=== PATIENT | female | born 1960 ===

== ENCOUNTER 2019-09-08 12:09 | Inpatient (IN) | payer OTHER ==
[~2019-09-08] VITALS: Ht 167.6 cm; Wt 152.8 kg
[~2019-09-08 12:09] MED LIST: ETOMIDATE 20 MG/10 ML ONE; PROPOFOL 100 ML IV ONE; SUCCINYLCHOLINE 20 MG/ML, 10ML ONE
--- NOTE | 2019-09-08 12:23 | NUR ---
md madsen at bedside w rt preping to intubate
[2019-09-08] MEDS ORDERED: ALBUTEROL/IPRATROPIUM 2.5MG/0.5MG, 3 ML NPPB ONE (12:30)
[2019-09-08] MEDS ORDERED: PLEASE ENTER ALLERGIES MC SCH (12:30)
[2019-09-08] MEDS ORDERED: SODIUM CHLORIDE FLUSH 10ML SYR IVF ONE (12:30)
[2019-09-08] MEDS ORDERED: PROPOFOL 100 ML IV PRN (12:40)
[2019-09-08] MEDS ORDERED: SUCCINYLCHOLINE 20 MG/ML, 10ML IVPush ONE (13:00)
[2019-09-08] MEDS ORDERED: ETOMIDATE 20 MG/10 ML IV ONE (13:00)
[2019-09-08 13:03] LABS: FIO2 80 %
--- NOTE | 2019-09-08 13:18 | NUR ---
NG placed, Xray obtained, pt on pressure support vent settings, pt sedated, awaiting ICU bed.
--- NOTE | 2019-09-08 13:26 | NUR ---
Pt's , Emiliano, contact info:
[2019-09-08 13:42] LABS: MEAN CORPUSCULAR HEMOGLOBIN 28.6 pg (27.0-34.8); MEAN CORPUSCULAR VOLUME 97.5 fL (80-100); MEAN PLATELET VOLUME 7.7 fL (7.4-10.4); PLATELET COUNT 355 x10^3/uL (130-400); RED BLOOD COUNT 6.21 x10^6/uL (3.82-5.3); RED CELL DISTRIBUTION WIDTH 17.2 % (9.6-15.2)
[2019-09-08 13:47] LABS: ANISOCYTOSIS 1+; BASOPHILS # (AUTO) 0.04 x10^3/uL (0-0.1); BASOPHILS % (AUTO) 0 % (0-1); EOSINOPHILS % (AUTO) 0 % (1-7); LYMPHOCYTES # (AUTO) 0.97 x10^3/uL (1-3.4); LYMPHOCYTES % (AUTO) 9 % (22-44); MD MORPH REVIEW ONLY; MEAN CORPUSCULAR HGB CONC 29.4 g/dL (32.4-35.8); MICROCYTOSIS 2+; MONOCYTES # (AUTO) 0.38 x10^3/uL (0.2-0.8); MONOCYTES % (AUTO) 4 % (2-9); NEUTROPHILS # (AUTO) 9.01 x10^3/uL (1.8-6.8); NEUTROPHILS % (AUTO) 87 % (42-75); POLYCHROMASIA 1+
[2019-09-08 13:48] LABS: <PLATELET ESTIMATE> ADEQUATE; HYPOCHROMIA 2+; LARGE PLATELETS 1+
[2019-09-08 14:26] LABS: ALANINE AMINOTRANSFERASE 42 U/L (12-78); ALBUMIN 2.6 g/dL (3.4-5.0); CALCIUM 9.3 mg/dL (8.5-10.1); CREATININE 0.98 mg/dL (0.55-1.02)
[2019-09-08 14:28] LABS: ALKALINE PHOSPHATASE 91 U/L (45-117); BILIRUBIN,TOTAL 0.7 mg/dL (0.2-1.0); TOTAL PROTEIN 6.6 g/dL (6.4-8.2)
[2019-09-08 14:38] LABS: ANION GAP 4 mmol/L (5-15); CHLORIDE 103 mmol/L (98-107)
[2019-09-08] MEDS: ALBUTEROL/IPRATROPIUM 2.5MG/0.5MG, 3 ML INLINE SCH ×3 (15:18→20:36)
[2019-09-08] MEDS ORDERED: GLUCAGON 1 MG IM PRN (15:30)
[2019-09-08] MEDS ORDERED: LACTULOSE 20 GM/30 ML UDC NG PRN (15:30)
[2019-09-08] MEDS ORDERED: LIDOCAINE-MPF 1%, 2ML ENDO PRN (15:30)
[2019-09-08] MEDS ORDERED: BISACODYL 10 MG SUPP PR PRN (15:30)
[2019-09-08] MEDS ORDERED: PHARMACY MAY ADJ FOR RENAL FX MC SCH (15:30)
[2019-09-08] MEDS ORDERED: SENNA 176 MG/5 ML ORAL SOL NG PRN (15:30)
[2019-09-08] MEDS ORDERED: DEXTROSE 4 GM TAB.CHEW PO PRN (15:30)
[2019-09-08] MEDS ORDERED: SENNA/DOCUSATE TABLET NG PRN (15:30)
[2019-09-08] MEDS ORDERED: DEXTROSE 50%, 50ML SYRINGE IVPush PRN (15:30)
[2019-09-08] MEDS ORDERED: ONDANSETRON 2MG/ML, 2ML IVPush PRN (16:00)
[2019-09-08] MEDS: PROPOFOL 100 ML IV PRN ×4 (16:25→22:58)
[2019-09-08 16:50] LABS: TRIGLYCERIDES 131 mg/dL (50-200)
[2019-09-08 16:53] LABS: TROPONIN I < 0.015 ng/mL (0.000-0.045)
[2019-09-08] MEDS: ENOXAPARIN 40 MG/0.4 ML SQ SCH (17:35)
[2019-09-08] MEDS ORDERED: CALCIUM CHLORIDE 13.6 MEQ in SODIUM CHLORIDE 0.9% 100 ML IV ONE (18:00)
[2019-09-08] MEDS ORDERED: SODIUM POLYSTYRENE SULFONATE ORAL SUSP PO ONE (18:00)
[2019-09-08 18:18] LABS: RAPID INFLUENZA A Negative (Negative); RAPID INFLUENZA B Negative (Negative)
[2019-09-08] MEDS: FUROSEMIDE 20 MG/2 ML IV SCH (18:29)
[2019-09-08] MEDS: SODIUM CHLORIDE FLUSH 10ML SYR IVF SCH (21:14)
[2019-09-08 21:33] LABS: ANION GAP 2 mmol/L (5-15); CALCIUM 9.8 mg/dL (8.5-10.1); CHLORIDE 104 mmol/L (98-107); CREATININE 0.77 mg/dL (0.55-1.02)
[2019-09-08 21:37] LABS: TROPONIN I < 0.015 ng/mL (0.000-0.045)
[2019-09-08 21:53] LABS: MICROSCOPIC AUTO
[2019-09-08 22:06] LABS: CULTURE INDICATED? NO
[2019-09-09] MEDS: PROPOFOL 100 ML IV PRN ×10 (00:30→22:43)
[2019-09-09] MEDS: ALBUTEROL/IPRATROPIUM 2.5MG/0.5MG, 3 ML INLINE SCH ×6 (02:14→22:34)
[2019-09-09 04:00] VITALS: BP 146/76
[2019-09-09] MEDS: PANTOPRAZOLE 40 MG IV IV SCH (07:55)
[2019-09-09] MEDS: FUROSEMIDE 20 MG/2 ML IV SCH ×2 (07:55→17:19)
[2019-09-09] MEDS: SODIUM CHLORIDE FLUSH 10ML SYR IVF SCH ×2 (09:00→19:08)
[2019-09-09 09:52] LABS: TROPONIN I < 0.015 ng/mL (0.000-0.045)
[2019-09-09 09:54] LABS: ANION GAP 2 mmol/L (5-15); CALCIUM 10.1 mg/dL (8.5-10.1); CHLORIDE 102 mmol/L (98-107); CREATININE 0.93 mg/dL (0.55-1.02)
[2019-09-09 10:18] LABS: BASOPHILS # (AUTO) 0.14 x10^3/uL (0-0.1); BASOPHILS % (AUTO) 1 % (0-1); EOSINOPHILS # (AUTO) 0.05 x10^3/uL (0-0.4); EOSINOPHILS % (AUTO) 1 % (1-7); LYMPHOCYTES # (AUTO) 1.17 x10^3/uL (1-3.4); LYMPHOCYTES % (AUTO) 11 % (22-44); MD SCAN; MEAN CORPUSCULAR HEMOGLOBIN 29.1 pg (27.0-34.8); MEAN CORPUSCULAR HGB CONC 30.7 g/dL (32.4-35.8); MEAN PLATELET VOLUME 7.7 fL (7.4-10.4); MONOCYTES # (AUTO) 1.01 x10^3/uL (0.2-0.8); MONOCYTES % (AUTO) 10 % (2-9); NEUTROPHILS # (AUTO) 7.86 x10^3/uL (1.8-6.8); NEUTROPHILS % (AUTO) 77 % (42-75); PLATELET COUNT 289 x10^3/uL (130-400); RED BLOOD COUNT 5.89 x10^6/uL (3.82-5.3); RED CELL DISTRIBUTION WIDTH 16.7 % (9.6-15.2)
--- NOTE | 2019-09-09 10:54 | NUR ---
TF GOAL: with or without propofol: VITAL HIGH PROTEIN @ 75ML/HR
[2019-09-09] MEDS ORDERED: OMNIPAQUE 350 MG/ML, 150 ML BOTTLE ONE (14:25)
[2019-09-09] MEDS ORDERED: FENTANYL PF 100 MCG/2ML ONE (15:19)
[2019-09-09] MEDS ORDERED: MIDAZOLAM 1 MG/ML, 5ML ONE (15:19)
[2019-09-09] MEDS: ENOXAPARIN 40 MG/0.4 ML SQ SCH (16:41)
[2019-09-09] MEDS ORDERED: hydrALAzine 20 MG/ML, 1ML IV PRN (17:30)
[2019-09-09] MEDS ORDERED: ENALAPRILAT 1.25 MG/ML, 1ML IV PRN (17:30)
[2019-09-10] MEDS: PROPOFOL 100 ML IV PRN ×7 (00:50→19:05)
[2019-09-10] MEDS: ALBUTEROL/IPRATROPIUM 2.5MG/0.5MG, 3 ML INLINE SCH ×6 (02:34→21:45)
[2019-09-10 03:56] LABS: MEAN CORPUSCULAR HEMOGLOBIN 29.3 pg (27.0-34.8); MEAN CORPUSCULAR HGB CONC 30.7 g/dL (32.4-35.8); MEAN CORPUSCULAR VOLUME 95.4 fL (80-100); MEAN PLATELET VOLUME 8.1 fL (7.4-10.4); PLATELET COUNT 285 x10^3/uL (130-400); RED BLOOD COUNT 5.37 x10^6/uL (3.82-5.3); RED CELL DISTRIBUTION WIDTH 16.4 % (9.6-15.2)
[2019-09-10 04:05] LABS: ANION GAP 2 mmol/L (5-15); CALCIUM 9.1 mg/dL (8.5-10.1); CHLORIDE 102 mmol/L (98-107)
[2019-09-10 04:06] LABS: CREATININE 0.59 mg/dL (0.55-1.02)
[2019-09-10 04:24] LABS: BASOPHILS # (AUTO) 0.07 x10^3/uL (0-0.1); BASOPHILS % (AUTO) 1 % (0-1); EOSINOPHILS # (AUTO) 0.18 x10^3/uL (0-0.4); EOSINOPHILS % (AUTO) 2 % (1-7); LYMPHOCYTES # (AUTO) 1.11 x10^3/uL (1-3.4); LYMPHOCYTES % (AUTO) 10 % (22-44); MD SCAN; MONOCYTES % (AUTO) 9 % (2-9); NEUTROPHILS # (AUTO) 8.79 x10^3/uL (1.8-6.8); NEUTROPHILS % (AUTO) 79 % (42-75)
[2019-09-10] MEDS ORDERED: FENTANYL PF 100 MCG/2ML ONE (05:15)
[2019-09-10] MEDS: FENTANYL PF 100 MCG/2ML IVPush PRN ×2 (05:30→08:52)
[2019-09-10] MEDS: FUROSEMIDE 20 MG/2 ML IV SCH ×2 (08:49→16:56)
[2019-09-10] MEDS: PANTOPRAZOLE 40 MG IV IV SCH (08:49)
[2019-09-10] MEDS: SODIUM CHLORIDE FLUSH 10ML SYR IVF SCH ×2 (08:50→18:58)
[2019-09-10] MEDS: DEXMEDETOMIDINE 1,000 MCG in SODIUM CHLORIDE 0.9% 240 ML IV PRN ×2 (10:33→21:12)
[2019-09-10] MEDS: SODIUM CHLORIDE INHALATION 7%, 4 ML NPPB SCH ×4 (10:45→23:00)
[2019-09-10] MEDS: ENOXAPARIN 40 MG/0.4 ML SQ SCH (16:55)
[2019-09-11] MEDS: ALBUTEROL/IPRATROPIUM 2.5MG/0.5MG, 3 ML INLINE SCH ×6 (02:03→22:44)
[2019-09-11] MEDS: SODIUM CHLORIDE INHALATION 7%, 4 ML NPPB SCH ×6 (02:03→22:44)
[2019-09-11 04:51] LABS: MEAN CORPUSCULAR HEMOGLOBIN 29.6 pg (27.0-34.8); MEAN CORPUSCULAR HGB CONC 31.1 g/dL (32.4-35.8); MEAN CORPUSCULAR VOLUME 95.2 fL (80-100); MEAN PLATELET VOLUME 8.3 fL (7.4-10.4); PLATELET COUNT 242 x10^3/uL (130-400); RED BLOOD COUNT 5.31 x10^6/uL (3.82-5.3); RED CELL DISTRIBUTION WIDTH 16.7 % (9.6-15.2)
[2019-09-11 04:55] LABS: ANION GAP 4 mmol/L (5-15); CALCIUM 8.8 mg/dL (8.5-10.1); CHLORIDE 103 mmol/L (98-107); CREATININE 0.49 mg/dL (0.55-1.02); TRIGLYCERIDES 115 mg/dL (50-200)
[2019-09-11 05:09] LABS: BASOPHILS # (AUTO) 0.07 x10^3/uL (0-0.1); BASOPHILS % (AUTO) 1 % (0-1); EOSINOPHILS # (AUTO) 0.17 x10^3/uL (0-0.4); EOSINOPHILS % (AUTO) 2 % (1-7); LYMPHOCYTES % (AUTO) 8 % (22-44); MD SCAN; MONOCYTES # (AUTO) 0.65 x10^3/uL (0.2-0.8); MONOCYTES % (AUTO) 6 % (2-9); NEUTROPHILS # (AUTO) 8.71 x10^3/uL (1.8-6.8); NEUTROPHILS % (AUTO) 84 % (42-75)
[2019-09-11] MEDS ORDERED: POTASSIUM CHLORIDE 10% 20 MEQ/15 ML UDC PO ONE (07:00)
[2019-09-11] MEDS: DEXMEDETOMIDINE 1,000 MCG in SODIUM CHLORIDE 0.9% 240 ML IV PRN ×2 (07:19→17:39)
[2019-09-11] MEDS ORDERED: POTASSIUM CHLORIDE 20 MEQ PACKET ONE (07:22)
[2019-09-11] MEDS: PANTOPRAZOLE 40 MG IV IV SCH (07:27)
[2019-09-11] MEDS: FUROSEMIDE 20 MG/2 ML IV SCH ×2 (07:27→17:39)
[2019-09-11] MEDS: SODIUM CHLORIDE FLUSH 10ML SYR IVF SCH ×2 (09:00→21:41)
[2019-09-11] MEDS: LEVOFLOXACIN/PMX 500MG/100ML 100 ML IV SCH (13:20)
[2019-09-11] MEDS: ENOXAPARIN 40 MG/0.4 ML SQ SCH (17:38)
[2019-09-12] MEDS: ALBUTEROL/IPRATROPIUM 2.5MG/0.5MG, 3 ML INLINE SCH ×6 (03:01→22:22)
[2019-09-12] MEDS: SODIUM CHLORIDE INHALATION 7%, 4 ML NPPB SCH ×6 (03:01→22:15)
[2019-09-12] MEDS: DEXMEDETOMIDINE 1,000 MCG in SODIUM CHLORIDE 0.9% 240 ML IV PRN (03:52)
[2019-09-12 05:00] LABS: MEAN CORPUSCULAR HEMOGLOBIN 29.5 pg (27.0-34.8); MEAN CORPUSCULAR VOLUME 95.2 fL (80-100); MEAN PLATELET VOLUME 8.6 fL (7.4-10.4); PLATELET COUNT 233 x10^3/uL (130-400); RED BLOOD COUNT 5.27 x10^6/uL (3.82-5.3); RED CELL DISTRIBUTION WIDTH 16.4 % (9.6-15.2)
[2019-09-12 05:10] LABS: CHLORIDE 104 mmol/L (98-107)
[2019-09-12 05:14] LABS: ANION GAP 2 mmol/L (5-15); CALCIUM 9.2 mg/dL (8.5-10.1); CREATININE 0.58 mg/dL (0.55-1.02)
[2019-09-12 06:04] LABS: BASOPHILS # (AUTO) 0.01 x10^3/uL (0-0.1); BASOPHILS % (AUTO) 0 % (0-1); EOSINOPHILS # (AUTO) 0.16 x10^3/uL (0-0.4); EOSINOPHILS % (AUTO) 1 % (1-7); LYMPHOCYTES # (AUTO) 0.94 x10^3/uL (1-3.4); LYMPHOCYTES % (AUTO) 8 % (22-44); MD SCAN; MONOCYTES % (AUTO) 7 % (2-9); NEUTROPHILS # (AUTO) 10.05 x10^3/uL (1.8-6.8); NEUTROPHILS % (AUTO) 84 % (42-75)
[2019-09-12] MEDS ORDERED: POTASSIUM CHLORIDE 10% 40 MEQ/30 ML UDC PO SCH (09:00)
[2019-09-12] MEDS: NEUTRA PHOS K 250 MG TABLET PO SCH ×2 (09:06→21:22)
[2019-09-12] MEDS: PANTOPRAZOLE 40 MG IV IV SCH (09:09)
[2019-09-12] MEDS: FUROSEMIDE 20 MG/2 ML IV SCH (09:09)
[2019-09-12] MEDS: SODIUM CHLORIDE FLUSH 10ML SYR IVF SCH ×2 (09:28→21:22)
[2019-09-12] MEDS ORDERED: PROPOFOL 100 ML IV PRN (09:30)
[2019-09-12] MEDS: POTASSIUM CHLORIDE 10% 40 MEQ/30 ML UDC PO SCH ×2 (10:00→21:22)
[2019-09-12] MEDS ORDERED: FUROSEMIDE 20 MG/2 ML IV ONE (10:30)
[2019-09-12] MEDS ORDERED: POTASSIUM CHLORIDE 10% 20 MEQ/15 ML UDC PO ONE (10:30)
[2019-09-12] MEDS: ACETAMINOPHEN 650 MG/20.3 ML UDC NG PRN (13:00)
[2019-09-12] MEDS: LEVOFLOXACIN/PMX 500MG/100ML 100 ML IV SCH (13:00)
[2019-09-12] MEDS ORDERED: FUROSEMIDE 40 MG TABLET PO SCH (17:00)
[2019-09-12] MEDS ORDERED: FUROSEMIDE 40 MG/4 ML ONE (17:36)
[2019-09-12] MEDS: FUROSEMIDE 40 MG/4 ML IV SCH (17:43)
[2019-09-12] MEDS: ENOXAPARIN 40 MG/0.4 ML SQ SCH (17:43)
[2019-09-13] MEDS: ALBUTEROL/IPRATROPIUM 2.5MG/0.5MG, 3 ML INLINE SCH ×2 (03:18→07:00)
[2019-09-13 04:44] LABS: MEAN CORPUSCULAR HEMOGLOBIN 29.3 pg (27.0-34.8); MEAN CORPUSCULAR HGB CONC 30.7 g/dL (32.4-35.8); MEAN CORPUSCULAR VOLUME 95.6 fL (80-100); MEAN PLATELET VOLUME 8.9 fL (7.4-10.4); PLATELET COUNT 224 x10^3/uL (130-400); RED BLOOD COUNT 5.08 x10^6/uL (3.82-5.3); RED CELL DISTRIBUTION WIDTH 16.5 % (9.6-15.2)
[2019-09-13 04:53] LABS: ANION GAP 3 mmol/L (5-15); CALCIUM 9.2 mg/dL (8.5-10.1); CHLORIDE 106 mmol/L (98-107); CREATININE 0.57 mg/dL (0.55-1.02)
[2019-09-13 05:57] LABS: BASOPHILS # (AUTO) 0.05 x10^3/uL (0-0.1); BASOPHILS % (AUTO) 0 % (0-1); EOSINOPHILS # (AUTO) 0.25 x10^3/uL (0-0.4); EOSINOPHILS % (AUTO) 2 % (1-7); LYMPHOCYTES # (AUTO) 1.36 x10^3/uL (1-3.4); LYMPHOCYTES % (AUTO) 11 % (22-44); MD SCAN; MONOCYTES # (AUTO) 1.14 x10^3/uL (0.2-0.8); MONOCYTES % (AUTO) 10 % (2-9); NEUTROPHILS # (AUTO) 9.18 x10^3/uL (1.8-6.8); NEUTROPHILS % (AUTO) 77 % (42-75)
[2019-09-13] MEDS: SODIUM CHLORIDE INHALATION 7%, 4 ML NPPB SCH (06:00)
[2019-09-13] MEDS ORDERED: MAGNESIUM SULFATE PMX 2GM/50ML 50 ML IV ONE (07:00)
[2019-09-13] MEDS: FUROSEMIDE 40 MG/4 ML IV SCH ×2 (08:26→17:17)
[2019-09-13] MEDS: NEUTRA PHOS K 250 MG TABLET PO SCH ×2 (08:26→21:17)
[2019-09-13] MEDS: POTASSIUM CHLORIDE 10% 40 MEQ/30 ML UDC PO SCH ×2 (08:26→21:18)
[2019-09-13] MEDS: PANTOPRAZOLE 40 MG IV IV SCH (08:27)
[2019-09-13] MEDS: SODIUM CHLORIDE FLUSH 10ML SYR IVF SCH ×2 (08:27→21:18)
[2019-09-13] MEDS ORDERED: ALBUTEROL/IPRATROPIUM 2.5MG/0.5MG, 3 ML NPPB PRN (11:00)
[2019-09-13] MEDS: ALBUTEROL/IPRATROPIUM 2.5MG/0.5MG, 3 ML NPPB SCH ×3 (11:29→18:48)
[2019-09-13] MEDS: AcetaZOLAMIDE INJ 500 MG IVPush SCH (11:44)
[2019-09-13] MEDS: LEVOFLOXACIN/PMX 500MG/100ML 100 ML IV SCH (13:15)
[2019-09-13] MEDS: ENOXAPARIN 40 MG/0.4 ML SQ SCH (17:17)
[2019-09-14] MEDS: ACETAMINOPHEN 650 MG/20.3 ML UDC NG PRN ×3 (01:14→21:17)
[2019-09-14 04:45] LABS: MEAN CORPUSCULAR HEMOGLOBIN 29.4 pg (27.0-34.8); MEAN CORPUSCULAR HGB CONC 30.6 g/dL (32.4-35.8); MEAN CORPUSCULAR VOLUME 96.2 fL (80-100); PLATELET COUNT 218 x10^3/uL (130-400); RED BLOOD COUNT 5.11 x10^6/uL (3.82-5.3)
[2019-09-14 04:48] LABS: ANION GAP 2 mmol/L (5-15); CALCIUM 9.4 mg/dL (8.5-10.1); CHLORIDE 106 mmol/L (98-107); CREATININE 0.56 mg/dL (0.55-1.02)
[2019-09-14 06:01] LABS: BASOPHILS # (AUTO) 0.04 x10^3/uL (0-0.1); BASOPHILS % (AUTO) 0 % (0-1); EOSINOPHILS % (AUTO) 3 % (1-7); LYMPHOCYTES # (AUTO) 1.17 x10^3/uL (1-3.4); LYMPHOCYTES % (AUTO) 10 % (22-44); MD SCAN; MONOCYTES # (AUTO) 1.34 x10^3/uL (0.2-0.8); MONOCYTES % (AUTO) 11 % (2-9); NEUTROPHILS # (AUTO) 8.97 x10^3/uL (1.8-6.8); NEUTROPHILS % (AUTO) 76 % (42-75)
[2019-09-14] MEDS: ALBUTEROL/IPRATROPIUM 2.5MG/0.5MG, 3 ML NPPB SCH ×4 (07:00→18:47)
[2019-09-14] MEDS: NEUTRA PHOS K 250 MG TABLET PO SCH ×2 (08:54→21:13)
[2019-09-14] MEDS: PANTOPRAZOLE 40 MG IV IV SCH (08:54)
[2019-09-14] MEDS: FUROSEMIDE 40 MG/4 ML IV SCH ×2 (08:54→18:24)
[2019-09-14] MEDS: POTASSIUM CHLORIDE 10% 40 MEQ/30 ML UDC PO SCH ×2 (08:55→21:13)
[2019-09-14] MEDS: SODIUM CHLORIDE FLUSH 10ML SYR IVF SCH ×2 (08:55→21:13)
[2019-09-14] MEDS: AcetaZOLAMIDE INJ 500 MG IVPush SCH (09:19)
[2019-09-14] MEDS: LEVOFLOXACIN/PMX 500MG/100ML 100 ML IV SCH (13:31)
[2019-09-14] MEDS: ENOXAPARIN 40 MG/0.4 ML SQ SCH (18:24)
[2019-09-15] MEDS: ACETAMINOPHEN 650 MG/20.3 ML UDC NG PRN ×3 (03:30→21:09)
[2019-09-15 04:46] LABS: CHLORIDE 103 mmol/L (98-107)
[2019-09-15 04:47] LABS: ANION GAP 2 mmol/L (5-15)
[2019-09-15 05:43] LABS: BASOPHILS # (AUTO) 0.05 x10^3/uL (0-0.1); BASOPHILS % (AUTO) 0 % (0-1); EOSINOPHILS # (AUTO) 0.47 x10^3/uL (0-0.4); EOSINOPHILS % (AUTO) 4 % (1-7); LYMPHOCYTES # (AUTO) 1.02 x10^3/uL (1-3.4); LYMPHOCYTES % (AUTO) 9 % (22-44); MD SCAN; MEAN CORPUSCULAR HEMOGLOBIN 29.5 pg (27.0-34.8); MEAN CORPUSCULAR HGB CONC 30.1 g/dL (32.4-35.8); MEAN PLATELET VOLUME 9.8 fL (7.4-10.4); MONOCYTES # (AUTO) 0.89 x10^3/uL (0.2-0.8); MONOCYTES % (AUTO) 8 % (2-9); NEUTROPHILS # (AUTO) 8.86 x10^3/uL (1.8-6.8); NEUTROPHILS % (AUTO) 79 % (42-75); PLATELET COUNT 193 x10^3/uL (130-400); RED BLOOD COUNT 5.04 x10^6/uL (3.82-5.3); RED CELL DISTRIBUTION WIDTH 16.9 % (9.6-15.2)
[2019-09-15] MEDS ORDERED: SODIUM PHOSPHATE 30 MMOL in SODIUM CHLORIDE 0.9% 500 ML IV ONE (07:00)
[2019-09-15] MEDS: ALBUTEROL/IPRATROPIUM 2.5MG/0.5MG, 3 ML NPPB SCH ×4 (07:00→19:08)
[2019-09-15] MEDS: FUROSEMIDE 40 MG/4 ML IV SCH ×2 (07:36→17:34)
[2019-09-15] MEDS: PANTOPRAZOLE 40 MG IV IV SCH (08:18)
[2019-09-15] MEDS: POTASSIUM CHLORIDE 10% 40 MEQ/30 ML UDC PO SCH (08:18)
[2019-09-15] MEDS: AcetaZOLAMIDE INJ 500 MG IVPush SCH (08:18)
[2019-09-15] MEDS: NEUTRA PHOS K 250 MG TABLET PO SCH ×2 (08:18→21:09)
[2019-09-15] MEDS: SODIUM CHLORIDE FLUSH 10ML SYR IVF SCH ×2 (09:00→21:09)
[2019-09-15] MEDS: LEVOFLOXACIN/PMX 500MG/100ML 100 ML IV SCH (13:09)
[2019-09-15] MEDS: ENOXAPARIN 40 MG/0.4 ML SQ SCH (17:34)
[2019-09-15] MEDS ORDERED: POTASSIUM CHLORIDE 20 MEQ TAB.ER.PRT ONE (21:05)
[2019-09-15] MEDS: POTASSIUM CHLORIDE 20 MEQ TAB.ER.PRT PO SCH (21:09)
[2019-09-16 04:44] LABS: ANION GAP 2 mmol/L (5-15); CALCIUM 9.8 mg/dL (8.5-10.1); CHLORIDE 102 mmol/L (98-107)
[2019-09-16 05:15] LABS: MEAN CORPUSCULAR HEMOGLOBIN 29.4 pg (27.0-34.8); MEAN CORPUSCULAR HGB CONC 30.3 g/dL (32.4-35.8); MEAN CORPUSCULAR VOLUME 97.1 fL (80-100); PLATELET COUNT 188 x10^3/uL (130-400); RED BLOOD COUNT 5.08 x10^6/uL (3.82-5.3); RED CELL DISTRIBUTION WIDTH 16.6 % (9.6-15.2)
[2019-09-16 05:52] LABS: BASOPHILS # (AUTO) 0.03 x10^3/uL (0-0.1); BASOPHILS % (AUTO) 0 % (0-1); EOSINOPHILS # (AUTO) 0.42 x10^3/uL (0-0.4); EOSINOPHILS % (AUTO) 5 % (1-7); LYMPHOCYTES # (AUTO) 0.88 x10^3/uL (1-3.4); LYMPHOCYTES % (AUTO) 11 % (22-44); MD SCAN; MONOCYTES # (AUTO) 0.77 x10^3/uL (0.2-0.8); MONOCYTES % (AUTO) 9 % (2-9); NEUTROPHILS # (AUTO) 6.19 x10^3/uL (1.8-6.8); NEUTROPHILS % (AUTO) 75 % (42-75)
[2019-09-16] MEDS ORDERED: MAGNESIUM SULFATE PMX 2GM/50ML 50 ML IV ONE (07:00)
[2019-09-16] MEDS: ALBUTEROL/IPRATROPIUM 2.5MG/0.5MG, 3 ML NPPB SCH ×4 (07:00→20:09)
[2019-09-16] MEDS: NEUTRA PHOS K 250 MG TABLET PO SCH ×2 (07:53→21:05)
[2019-09-16] MEDS: FUROSEMIDE 40 MG/4 ML IV SCH ×2 (07:54→16:54)
[2019-09-16] MEDS: PANTOPRAZOLE 40 MG IV IV SCH (07:54)
[2019-09-16] MEDS: POTASSIUM CHLORIDE 20 MEQ TAB.ER.PRT PO SCH ×2 (07:54→21:05)
[2019-09-16] MEDS: SODIUM CHLORIDE FLUSH 10ML SYR IVF SCH ×2 (07:55→21:05)
[2019-09-16] MEDS: LEVOFLOXACIN/PMX 500MG/100ML 100 ML IV SCH (12:55)
[2019-09-16] MEDS: ENOXAPARIN 40 MG/0.4 ML SQ SCH (16:54)
[2019-09-17 04:25] LABS: MEAN CORPUSCULAR HEMOGLOBIN 28.7 pg (27.0-34.8); MEAN CORPUSCULAR HGB CONC 30.3 g/dL (32.4-35.8); MEAN CORPUSCULAR VOLUME 94.8 fL (80-100); MEAN PLATELET VOLUME 9.1 fL (7.4-10.4); PLATELET COUNT 191 x10^3/uL (130-400); RED BLOOD COUNT 5.19 x10^6/uL (3.82-5.3); RED CELL DISTRIBUTION WIDTH 15.8 % (9.6-15.2)
[2019-09-17 04:26] LABS: ANION GAP 4 mmol/L (5-15); CALCIUM 9.4 mg/dL (8.5-10.1); CHLORIDE 102 mmol/L (98-107); CREATININE 0.48 mg/dL (0.55-1.02)
[2019-09-17 06:05] LABS: BASOPHILS # (AUTO) 0.02 x10^3/uL (0-0.1); BASOPHILS % (AUTO) 0 % (0-1); EOSINOPHILS # (AUTO) 0.28 x10^3/uL (0-0.4); EOSINOPHILS % (AUTO) 4 % (1-7); LYMPHOCYTES % (AUTO) 12 % (22-44); MD SCAN; MONOCYTES # (AUTO) 0.76 x10^3/uL (0.2-0.8); MONOCYTES % (AUTO) 10 % (2-9); NEUTROPHILS # (AUTO) 5.67 x10^3/uL (1.8-6.8); NEUTROPHILS % (AUTO) 74 % (42-75)
[2019-09-17] MEDS: PANTOPROZOLE 40MG TABLET PO SCH (06:21)
[2019-09-17] MEDS ORDERED: MAGNESIUM SULFATE PMX 2GM/50ML 50 ML IV ONE (07:00)
[2019-09-17] MEDS: ALBUTEROL/IPRATROPIUM 2.5MG/0.5MG, 3 ML NPPB SCH ×4 (07:00→18:45)
[2019-09-17] MEDS: SODIUM CHLORIDE FLUSH 10ML SYR IVF SCH ×2 (07:33→20:43)
[2019-09-17] MEDS: POTASSIUM CHLORIDE 20 MEQ TAB.ER.PRT PO SCH ×2 (07:37→20:27)
[2019-09-17] MEDS: NEUTRA PHOS K 250 MG TABLET PO SCH ×2 (07:37→20:27)
[2019-09-17] MEDS: FUROSEMIDE 40 MG/4 ML IV SCH ×2 (07:38→17:02)
[2019-09-17] MEDS: LEVOFLOXACIN/PMX 500MG/100ML 100 ML IV SCH (13:51)
[2019-09-17] MEDS: ENOXAPARIN 40 MG/0.4 ML SQ SCH (17:02)
[2019-09-17 19:37] VITALS: BP 112/63
[2019-09-17] MEDS: ACETAMINOPHEN 650 MG/20.3 ML UDC NG PRN (23:43)
[2019-09-18 01:36] VITALS: BP 122/71
[2019-09-18] MEDS: PANTOPROZOLE 40MG TABLET PO SCH (04:59)
[2019-09-18 05:39] LABS: ANION GAP 3 mmol/L (5-15); CALCIUM 9.9 mg/dL (8.5-10.1); CHLORIDE 102 mmol/L (98-107); CREATININE 0.48 mg/dL (0.55-1.02)
[2019-09-18 05:44] LABS: MEAN CORPUSCULAR HEMOGLOBIN 29.2 pg (27.0-34.8); MEAN CORPUSCULAR HGB CONC 30.2 g/dL (32.4-35.8); MEAN CORPUSCULAR VOLUME 96.7 fL (80-100); MEAN PLATELET VOLUME 9.4 fL (7.4-10.4); PLATELET COUNT 229 x10^3/uL (130-400); RED BLOOD COUNT 5.31 x10^6/uL (3.82-5.3); RED CELL DISTRIBUTION WIDTH 17.2 % (9.6-15.2)
[2019-09-18 06:00] LABS: BASOPHILS # (AUTO) 0.03 x10^3/uL (0-0.1); BASOPHILS % (AUTO) 0 % (0-1); EOSINOPHILS % (AUTO) 4 % (1-7); LYMPHOCYTES # (AUTO) 0.85 x10^3/uL (1-3.4); LYMPHOCYTES % (AUTO) 12 % (22-44); MD SCAN; MONOCYTES % (AUTO) 11 % (2-9); NEUTROPHILS # (AUTO) 5.03 x10^3/uL (1.8-6.8); NEUTROPHILS % (AUTO) 72 % (42-75)
[2019-09-18] MEDS: ALBUTEROL/IPRATROPIUM 2.5MG/0.5MG, 3 ML NPPB SCH ×4 (07:20→19:53)
[2019-09-18] MEDS: FUROSEMIDE 40 MG/4 ML IV SCH ×2 (08:26→17:19)
[2019-09-18] MEDS: POTASSIUM CHLORIDE 20 MEQ TAB.ER.PRT PO SCH ×2 (08:26→20:32)
[2019-09-18] MEDS: NEUTRA PHOS K 250 MG TABLET PO SCH ×2 (08:26→20:32)
[2019-09-18] MEDS: SODIUM CHLORIDE FLUSH 10ML SYR IVF SCH ×2 (08:27→20:32)
[2019-09-18 14:48] VITALS: BP 112/66
[2019-09-18] MEDS: ENOXAPARIN 30 MG/0.3 ML SQ SCH (14:55)
[2019-09-18 19:27] VITALS: BP 136/83
[2019-09-19 01:28] VITALS: BP 133/80
[2019-09-19] MEDS: ENOXAPARIN 30 MG/0.3 ML SQ SCH ×2 (02:48→14:18)
[2019-09-19] MEDS: PANTOPROZOLE 40MG TABLET PO SCH (06:00)
[2019-09-19 06:38] LABS: MEAN CORPUSCULAR HGB CONC 30.6 g/dL (32.4-35.8); MEAN CORPUSCULAR VOLUME 94.7 fL (80-100); MEAN PLATELET VOLUME 9.2 fL (7.4-10.4); PLATELET COUNT 250 x10^3/uL (130-400); RED BLOOD COUNT 5.39 x10^6/uL (3.82-5.3); RED CELL DISTRIBUTION WIDTH 16.6 % (9.6-15.2)
[2019-09-19 06:39] LABS: ANION GAP 4 mmol/L (5-15); CALCIUM 10.1 mg/dL (8.5-10.1); CHLORIDE 101 mmol/L (98-107)
[2019-09-19 06:40] LABS: CREATININE 0.47 mg/dL (0.55-1.02)
[2019-09-19] MEDS: ALBUTEROL/IPRATROPIUM 2.5MG/0.5MG, 3 ML NPPB SCH ×3 (06:55→15:10)
[2019-09-19 07:10] LABS: BASOPHILS # (AUTO) 0.03 x10^3/uL (0-0.1); BASOPHILS % (AUTO) 0 % (0-1); EOSINOPHILS # (AUTO) 0.32 x10^3/uL (0-0.4); EOSINOPHILS % (AUTO) 5 % (1-7); LYMPHOCYTES # (AUTO) 1.08 x10^3/uL (1-3.4); LYMPHOCYTES % (AUTO) 16 % (22-44); MD SCAN; MONOCYTES # (AUTO) 0.64 x10^3/uL (0.2-0.8); MONOCYTES % (AUTO) 10 % (2-9); NEUTROPHILS # (AUTO) 4.48 x10^3/uL (1.8-6.8); NEUTROPHILS % (AUTO) 69 % (42-75)
[2019-09-19 07:23] VITALS: BP 122/70
[2019-09-19] MEDS: NEUTRA PHOS K 250 MG TABLET PO SCH ×2 (08:30→22:13)
[2019-09-19] MEDS: POTASSIUM CHLORIDE 20 MEQ TAB.ER.PRT PO SCH ×2 (08:31→22:13)
[2019-09-19] MEDS: SODIUM CHLORIDE FLUSH 10ML SYR IVF SCH ×2 (08:31→22:13)
[2019-09-19] MEDS: FUROSEMIDE 40 MG/4 ML IV SCH ×2 (09:20→17:00)
[2019-09-19 14:38] VITALS: BP 133/85
[2019-09-19 19:42] VITALS: BP 127/78
[2019-09-19] MEDS ORDERED: ALBUTEROL/IPRATROPIUM 2.5MG/0.5MG, 3 ML NPPB SCH (21:00)
[2019-09-20 01:01] VITALS: BP 137/78
[2019-09-20] MEDS: ENOXAPARIN 30 MG/0.3 ML SQ SCH ×2 (02:39→14:41)
[2019-09-20] MEDS ORDERED: FURO-93 PO (04:04)
[2019-09-20] MEDS ORDERED: POTA40LI7 PO (04:08)
[2019-09-20] MEDS ORDERED: CARV6.25 PO (04:09)
[2019-09-20] MEDS: PANTOPROZOLE 40MG TABLET PO SCH (05:05)
[2019-09-20 05:29] LABS: ANION GAP 1 mmol/L (5-15); CHLORIDE 100 mmol/L (98-107); CREATININE 0.52 mg/dL (0.55-1.02)
[2019-09-20 05:45] LABS: MEAN CORPUSCULAR HEMOGLOBIN 29.1 pg (27.0-34.8); MEAN CORPUSCULAR HGB CONC 30.4 g/dL (32.4-35.8); MEAN CORPUSCULAR VOLUME 95.4 fL (80-100); MEAN PLATELET VOLUME 9.1 fL (7.4-10.4); PLATELET COUNT 287 x10^3/uL (130-400); RED BLOOD COUNT 5.37 x10^6/uL (3.82-5.3); RED CELL DISTRIBUTION WIDTH 16.6 % (9.6-15.2)
[2019-09-20 06:13] LABS: BASOPHILS # (AUTO) 0.08 x10^3/uL (0-0.1); BASOPHILS % (AUTO) 1 % (0-1); EOSINOPHILS # (AUTO) 0.32 x10^3/uL (0-0.4); EOSINOPHILS % (AUTO) 4 % (1-7); LYMPHOCYTES # (AUTO) 1.28 x10^3/uL (1-3.4); LYMPHOCYTES % (AUTO) 15 % (22-44); MD SCAN; MONOCYTES # (AUTO) 0.68 x10^3/uL (0.2-0.8); MONOCYTES % (AUTO) 8 % (2-9); NEUTROPHILS # (AUTO) 6.04 x10^3/uL (1.8-6.8); NEUTROPHILS % (AUTO) 72 % (42-75)
[2019-09-20 07:17] VITALS: BP 153/89
[2019-09-20] MEDS ORDERED: ALBUTEROL/IPRATROPIUM 2.5MG/0.5MG, 3 ML NPPB SCH (07:30)
[2019-09-20] MEDS: FUROSEMIDE 40 MG/4 ML IV SCH (07:49)
[2019-09-20] MEDS: POTASSIUM CHLORIDE 20 MEQ TAB.ER.PRT PO SCH (07:49)
[2019-09-20] MEDS: NEUTRA PHOS K 250 MG TABLET PO SCH (07:49)
[2019-09-20] MEDS: SODIUM CHLORIDE FLUSH 10ML SYR IVF SCH (07:50)
[2019-09-20] MEDS ORDERED: POTA20TA91 PO (13:49)
[2019-09-20] MEDS ORDERED: FURO40TA6 PO (13:49)
[2019-09-20] MEDS ORDERED: ALBU8.5H8 INH (13:49)
[2019-09-20 14:12] VITALS: BP 146/85
== END 2019-09-20 17:32 | disposition home or self-care (01) | DRG 207 ==
LOC: SUATTDRO 12:48 → ED 14:42 → UNDOADMIN 14:50 → ORIP 14:50 → ICU 14:50 → 4EST 09-17 14:44 → 4WST 09-18 00:43 → DCLOUNGE 09-20 17:31
PROVIDERS: ADMIT Internal Medicine; ATTEND Internal Medicine
PROC: 0T9B70Z Drainage of Bladder with Drainage Device, Via Natural or Artificial Opening (ICD-10-PCS; principal; 2019-09-08)
PROC: 5A1955Z Respiratory Ventilation, Greater than 96 Consecutive Hours (ICD-10-PCS; 2019-09-08)
PROC: 0BH17EZ Insertion of Endotracheal Airway into Trachea, Via Natural or Artificial Opening (ICD-10-PCS; 2019-09-08)
PROC: 0BJ08ZZ Inspection of Tracheobronchial Tree, Via Natural or Artificial Opening Endoscopic (ICD-10-PCS; 2019-09-09)
PROC: 5A09357 Assistance with Respiratory Ventilation, Less than 24 Consecutive Hours, Continuous Positive Airway Pressure (ICD-10-PCS; 2019-09-14)
PROC: 5A09357 Assistance with Respiratory Ventilation, Less than 24 Consecutive Hours, Continuous Positive Airway Pressure (ICD-10-PCS; 2019-09-15)
PROC: 5A09357 Assistance with Respiratory Ventilation, Less than 24 Consecutive Hours, Continuous Positive Airway Pressure (ICD-10-PCS; 2019-09-16)
PROC: 5A09357 Assistance with Respiratory Ventilation, Less than 24 Consecutive Hours, Continuous Positive Airway Pressure (ICD-10-PCS; 2019-09-17)
DX: J96.21 Acute and chronic respiratory failure with hypoxia (principal); G93.41 Metabolic encephalopathy; I50.31 Acute diastolic (congestive) heart failure; J15.6 Pneumonia due to other Gram-negative bacteria; E66.2 Morbid (severe) obesity with alveolar hypoventilation; E87.0 Hyperosmolality and hypernatremia; E87.2 Acidosis; J44.0 Chronic obstructive pulmonary disease with (acute) lower respiratory infection; J44.1 Chronic obstructive pulmonary disease with (acute) exacerbation; J98.11 Atelectasis; Z99.11 Dependence on respirator [ventilator] status; Z68.43 Body mass index [BMI] 50.0-59.9, adult; D75.1 Secondary polycythemia; J96.22 Acute and chronic respiratory failure with hypercapnia; E87.5 Hyperkalemia; E87.6 Hypokalemia; E88.09 Other disorders of plasma-protein metabolism, not elsewhere classified; G47.33 Obstructive sleep apnea (adult) (pediatric); I89.0 Lymphedema, not elsewhere classified
CPT/HCPCS: 31500; 36415; 36600; 84145; 87400; 96374; 99291; J7620; 31622; 71045; 71275; 80048; 80053; 81001; 82803; 83605; 83735; 84100; 84132; 84478; 84484; 85025; 87040; 87070; 87077; 87081; 87086; 87186; 87205; 93005; 93306; 93922; 93970; 94002; 94003; 94640; 94660; 94667; 94668; G0378; J1650; J1940; J1956; J2704; J3010; Q9967; C9113; J0330; J1120; J3475; J7040; J7050